=== PATIENT | female | born 1940 | race Caucasian/White ===

== ENCOUNTER 2017-07-19 15:33 | Emergency (ER) | payer MEDICARE ==
[~2017-07-19] VITALS: Ht 157.5 cm; Wt 90.0 kg
[~2017-07-19 15:33] MED LIST: ASPI81 PO; ATEN-102 PO; ENOX40P SQ; GLUCTAB OR; LISI-360 PO; NAPR-576 PO; OXYC-360 PO; PRIL10CA PO; SIMV10TA OR
[2017-07-19 15:35] VITALS: BP 172/81; PULSE 115; RESP 24; TEMP 97.7; O2SAT 94
--- NOTE | 2017-07-19 16:19 | PD ---
Physical Exam Date Seen by Provider: Jul 19, 2017 Time Seen by Provider: 16:15 Narrative 76-year-old female with history of bright flashes in both eyes yesterday afternoon. This lasted just a few seconds and the patient didn't think much of it. This morning the patient woke up with some headache which has continued through the day. Patient called the nurses hotline and she recommended she get evaluated here. Patient states it's a 1-2 out of 10 at most. Patient states this is where she has her typical headache across the front of the forehead. She denies any other symptoms. Patient states she does not normally get headaches and has no history of migraines. She feels is probably a stress headache. Patient did take some Tylenol but it did not seem to help. She states it is not getting worse but not getting better as well. She is allergic to codeine and penicillin. Vitals are reviewed. Patient is awaiting bed placement. Data Data Last Documented VS Vital Signs Date Time Temp Pulse Resp B/P (MAP) Pulse Ox O2 Delivery O2 Flow Rate FiO2 07/19/17 15:35 97.7 115 24 172/81 (111) 94 Room Air [facility] Medical Record Reviewed: Yes Supervised Visit with MENDEZ: Yes Condition: Stable Aleksandr Ray Jul 19, 2017 16:19
[2017-07-19 17:30] VITALS: BP 142/79; PULSE 112; RESP 20; O2SAT 97
[2017-07-19] MEDS ORDERED: SIMV10TA PO (17:43)
[2017-07-19] MEDS ORDERED: LISI30TA4 PO (17:43)
[2017-07-19] MEDS ORDERED: METF500T PO (17:43)
[2017-07-19] MEDS ORDERED: METO25TA3 PO (17:43)
[2017-07-19] MEDS ORDERED: ASPI81CH37 CHEW (17:43)
[2017-07-19] MEDS ORDERED: VITA1000 PO (17:43)
[2017-07-19] MEDS ORDERED: VERA1TAB17 PO (17:43)
[2017-07-19] MEDS ORDERED: SODIUM CHLOR 0.9% 1000 ML INJ 1,000 ML IV ONE (17:57)
[2017-07-19] MEDS ORDERED: SODIUM CHLORIDE 0.9% FLUSH 10 ML FLUSH IVF PRN (18:00)
--- NOTE | 2017-07-19 18:21 | PD ---
HPI Chief Complaint: Headache Time Seen by Provider: 17:27 Travel History International Travel<30 days: No Contact w/Intl Traveler<30days: No Traveled to known affect area: No History of Present Illness HPI Patient is a 76-year-old female who presents to emergency room complaints of a minor frontal headache today. Reports that yesterday, she was watching television and saw bright flashes of light in her eyes. She reports that symptoms lasted a few seconds and resolved on its own. Reports no pain with the bright flashing lights. Reports that she then began to have a slight headache today which is typical for her normal headaches, reports that her family insisted that she come to the emergency room for evaluation. Patient denies taking any anticoagulation, she denies any dizziness at this time. Reports mild frontal headache. Denies any vision changes, denies any nausea or vomiting, denies any fevers or chills, denies any chest pain or shortness of breath, no other complaints. PFSH Past Medical History Arthritis: Yes Autoimmune Disease: No Anxiety: Yes Cancer: No Cardiovascular Problems: Yes High Cholesterol: Yes Diabetes: Yes Patient Takes Glucophage: No Endocrine: Yes GERD: Yes Genitourinary: No Hypertension: Yes Implanted Vascular Access Dvce: Yes Musculoskeletal: Yes Neurologic: No Respiratory: No Influenza Vaccination: Yes Past Surgical History Joint Replacement: Yes (LEFT TOTAL HIP) Social History Alcohol Use: Yes (seldom) Tobacco Use: No Substance Use: No Allergies-Medications (Allergen,Severity, Reaction): Coded Allergies: codeine (Unverified Allergy, Severe, UNKNOWN, 07/19/17) penicillin G (Unverified Allergy, Severe, UNKNOWN, 07/19/17) Reported Meds & Prescriptions Reported Meds & Active Scripts Active Reported Vitamin D-1000 (Cholecalciferol) 1,000 Unit Tab 2,000 Units PO DAILY Verapamil ER 24 HR (Verapamil HCl) 240 Mg Tab 180 Mg PO DAILY Simvastatin 10 Mg Tab 10 Mg PO DAILY Metoprolol Tartrate 25 Mg Tab 12.5 Mg PO BID Metformin (Metformin HCl) 500 Mg Tab 500 Mg PO BIDPC With meals Lisinopril 30 Mg Tab 30 Mg PO DAILY Aspirin Low Dose (Aspirin) 81 Mg Chew 81 Mg CHEW DAILY Review of Systems General / Constitutional: No: Fever Eyes: Positive: Visual changes, No: Blurred Vision, Photophobia, Foreign Body Sensation, Pain, Tearing HENT: Positive: Headaches Cardiovascular: No: Chest Pain or Discomfort Respiratory: No: Shortness of Breath Gastrointestinal: No: Abdominal Pain Genitourinary: No: Dysuria Musculoskeletal: No: Pain Skin: No Rash Neurologic: Positive: Headache, No: Weakness Psychiatric: No: Depression Endocrine: No: Polydipsia Hematologic/Lymphatic: No: Easy Bruising Physical Exam Narrative GENERAL: NAD SKIN: Focused skin assessment warm/dry. HEAD: Atraumatic. Normocephalic. EYES: Pupils equal and round. No scleral icterus. No injection or drainage. ENT: No nasal bleeding or discharge. Mucous membranes pink and moist. NECK: Trachea midline. No JVD. CARDIOVASCULAR: Regular rate and rhythm. No murmur appreciated. RESPIRATORY: No accessory muscle use. Clear to auscultation. Breath sounds equal bilaterally. GASTROINTESTINAL: Abdomen soft, non-tender, nondistended. Hepatic and splenic margins not palpable. MUSCULOSKELETAL: No obvious deformities. No clubbing. No cyanosis. No edema. NEUROLOGICAL: Awake and alert. No obvious cranial nerve deficits. Motor grossly within normal limits. Normal speech. CN 2-12 grossly intact with no neurological deficits PSYCHIATRIC: Appropriate mood and affect; insight and judgment normal. Data Data Last Documented VS Vital Signs Date Time Temp Pulse Resp B/P (MAP) Pulse Ox O2 Delivery O2 Flow Rate FiO2 07/19/17 18:34 111 21 160/78 (105) 96 Room Air 07/19/17 15:35 97.7 Orders Orders Complete Blood Count With Diff (07/19/17 17:57) Basic Metabolic Panel (Bmp) (07/19/17 17:57) Prothrombin Time / Inr (Pt) (07/19/17 17:57) Act Partial Throm Time (Ptt) (07/19/17 17:57) Ct Brain W/O Iv Contrast(Rout) (07/19/17 17:57) Ecg Monitoring (07/19/17 17:57) Iv Access Insert/Monitor (07/19/17 17:57) Oximetry (07/19/17 17:57) Sodium Chloride 0.9% Flush (Ns Flush) (07/19/17 18:00) Sodium Chlor 0.9% 1000 Ml Inj (Ns 1000 M (07/19/17 17:57) Sodium Chlor 0.9% 1000 Ml Inj (Ns 1000 M (07/19/17 18:38) Ketorolac Inj (Toradol Inj) (07/19/17 18:45) MDM Medical Decision Making Medical Screen Exam Complete: Yes Emergency Medical Condition: Yes Medical Record Reviewed: Yes Interpretation(s) Vital Signs Date Time Temp Pulse Resp B/P (MAP) Pulse Ox O2 Delivery O2 Flow Rate FiO2 07/19/17 15:35 97.7 115 24 172/81 (111) 94 Room Air Differential Diagnosis Differential includes migraine headache, ich, electrolyte abnormality, glaucoma Narrative Course 76-year-old female who presents to emergency room with complaints of mild frontal headache, reports that yesterday episode where she saw some bright flashing lights in both eyes while watching tv. Patient reports complete resolution of symptoms at this time, reports mild frontal headache. Patient with no vision changes, no nausea or vomiting, no other complaints at this time. CBC, BMP and ct of head ordered. Will continue to monitor on conveyor monitor Diagnosis Primary Impression: Cephalgia Qualified Codes: R51 - Headache Patient Instructions: General Instructions Additional Instructions: Please follow up with your child daycare worker as scheduled Return to ER if symptoms return Please follow up with your primary care doctor Return to ER as needed Condition: Stable Emma Thomas DO Jul 19, 2017 18:21
[2017-07-19 18:33] VITALS: O2SAT 96
[2017-07-19 18:34] VITALS: BP 160/78; PULSE 111; RESP 21; O2SAT 96
--- NOTE | 2017-07-19 18:36 | RADRPT ---
EXAM DATE/TIME: 07/19/2017 18:16 [place] COMPARISON: No previous studies available for comparison. INDICATIONS : Cephalgia today. RADIATION DOSE: 56.35 CTDIvol (mGy) MEDICAL HISTORY : Hypertension. diabetes SURGICAL HISTORY : None. ENCOUNTER: Initial ACUITY: 1 day PAIN SCALE: 7/10 LOCATION: Bilateral head TECHNIQUE: Multiple contiguous axial images were obtained of the head. Using automated exposure control and adj ustment of the mA and/or kV according to patient size, radiation dose was kept as low as reasonably a chievable to obtain optimal diagnostic quality images. DICOM format image data is available electro nically for review and comparison. FINDINGS: CEREBRUM: The ventricles are normal for age. No evidence of midline shift, mass lesion, hemorrhage or acute in farction. No extra-axial fluid collections are seen. POSTERIOR FOSSA: The cerebellum and brainstem are intact. The 4th ventricle is midline. The cerebellopontine angle i s unremarkable. EXTRACRANIAL: The visualized portion of the orbits is intact. SKULL: The calvaria is intact. No evidence of skull fracture. CONCLUSION: Negative Noncontrast CT Charly Cast MD on July 19, 2017 at 18:34 Board Certified Radiologist. This report was verified electronically.
[2017-07-19] MEDS ORDERED: SODIUM CHLOR 0.9% 1000 ML INJ 1,000 ML IV SCH (18:38)
[2017-07-19] MEDS ORDERED: KETOROLAC TROMETHAMINE 30 MG/ML (IVP) VIAL IV PUSH ONE (18:45)
[2017-07-19 19:23] LABS: BASOPHIL % 0.5 % (0.0-2.0); EOSINOPHIL # 0.2 TH/MM3 (0-0.4); EOSINOPHIL % 1.7 % (0.0-4.0); HEMATOCRIT 42.8 % (35.0-46.0); HEMO FLAGS DIFF FINAL; LYMPH % 19.2 % (9.0-44.0); LYMPHOCYTE # 1.9 TH/MM3 (1.0-4.8); MEAN CELL VOLUME 95.2 FL (80.0-100.0); MEAN CORPUSCULAR HEMOGLOBIN 31.9 PG (27.0-34.0); MEAN CORPUSCULAR HGB CONC 33.5 % (32.0-36.0); NEUT % 72.6 % (16.0-70.0); PLATELET COUNT 256 TH/MM3 (150-450); RED BLOOD COUNT 4.49 MIL/MM3 (4.00-5.30); WHITE BLOOD COUNT 9.7 TH/MM3 (4.0-11.0)
[2017-07-19 19:43] LABS: APTT (PATIENT) 28.4 SEC (24.3-30.1); PROTHROMBIN TIME - PATIENT 11.3 SEC (9.8-11.6)
[2017-07-19 19:47] LABS: BICARBONATE 23.9 MEQ/L (21.0-32.0); POTASSIUM 4.5 MEQ/L (3.5-5.1)
--- NOTE | 2017-07-19 20:19 | PD ---
Physical Exam Date Seen by Provider: Jul 19, 2017 Time Seen by Provider: 20:17 Narrative The patient is a 76-year-old female who is initially evaluated by Dr. Thomas. Please refer to the initial history, physical, diagnostic evaluation, and treatment modality plan. The patient was signed out laboratory evaluation pending for her headache. Data Data Last Documented VS Vital Signs Date Time Temp Pulse Resp B/P (MAP) Pulse Ox O2 Delivery O2 Flow Rate FiO2 07/19/17 18:34 111 21 160/78 (105) 96 Room Air 07/19/17 15:35 97.7 Orders Orders Complete Blood Count With Diff (07/19/17 17:57) Basic Metabolic Panel (Bmp) (07/19/17 17:57) Prothrombin Time / Inr (Pt) (07/19/17 17:57) Act Partial Throm Time (Ptt) (07/19/17 17:57) Ct Brain W/O Iv Contrast(Rout) (07/19/17 17:57) Ecg Monitoring (07/19/17 17:57) Iv Access Insert/Monitor (07/19/17 17:57) Oximetry (07/19/17 17:57) Sodium Chloride 0.9% Flush (Ns Flush) (07/19/17 18:00) Sodium Chlor 0.9% 1000 Ml Inj (Ns 1000 M (07/19/17 17:57) Sodium Chlor 0.9% 1000 Ml Inj (Ns 1000 M (07/19/17 18:38) Ketorolac Inj (Toradol Inj) (07/19/17 18:45) Labs Laboratory Tests Test 07/19/17 18:30 White Blood Count 9.7 TH/MM3 Red Blood Count 4.49 MIL/MM3 Hemoglobin 14.3 GM/DL Hematocrit 42.8 % Mean Corpuscular Volume 95.2 FL Mean Corpuscular Hemoglobin 31.9 PG Mean Corpuscular Hemoglobin Concent 33.5 % Red Cell Distribution Width 14.0 % Platelet Count 256 TH/MM3 Mean Platelet Volume 7.7 FL Neutrophils (%) (Auto) 72.6 % Lymphocytes (%) (Auto) 19.2 % Monocytes (%) (Auto) 6.0 % Eosinophils (%) (Auto) 1.7 % Basophils (%) (Auto) 0.5 % Neutrophils # (Auto) 7.0 TH/MM3 Lymphocytes # (Auto) 1.9 TH/MM3 Monocytes # (Auto) 0.6 TH/MM3 Eosinophils # (Auto) 0.2 TH/MM3 Basophils # (Auto) 0.0 TH/MM3 CBC Comment DIFF FINAL Differential Comment Prothrombin Time 11.3 SEC Prothromb Time International Ratio 1.0 RATIO Activated Partial Thromboplast Time 28.4 SEC Blood Urea Nitrogen 18 MG/DL Creatinine 1.05 MG/DL Random Glucose 125 MG/DL Calcium Level 9.5 MG/DL Sodium Level 136 MEQ/L Potassium Level 4.5 MEQ/L Chloride Level 104 MEQ/L Carbon Dioxide Level 23.9 MEQ/L Anion Gap 8 MEQ/L Estimat Glomerular Filtration Rate 51 ML/MIN [facility] Medical Record Reviewed: Yes Supervised Visit with MENDEZ: No Interpretation(s) Laboratory Tests Test 07/19/17 18:30 White Blood Count 9.7 TH/MM3 Red Blood Count 4.49 MIL/MM3 Hemoglobin 14.3 GM/DL Hematocrit 42.8 % Mean Corpuscular Volume 95.2 FL Mean Corpuscular Hemoglobin 31.9 PG Mean Corpuscular Hemoglobin Concent 33.5 % Red Cell Distribution Width 14.0 % Platelet Count 256 TH/MM3 Mean Platelet Volume 7.7 FL Neutrophils (%) (Auto) 72.6 % Lymphocytes (%) (Auto) 19.2 % Monocytes (%) (Auto) 6.0 % Eosinophils (%) (Auto) 1.7 % Basophils (%) (Auto) 0.5 % Neutrophils # (Auto) 7.0 TH/MM3 Lymphocytes # (Auto) 1.9 TH/MM3 Monocytes # (Auto) 0.6 TH/MM3 Eosinophils # (Auto) 0.2 TH/MM3 Basophils # (Auto) 0.0 TH/MM3 CBC Comment DIFF FINAL Differential Comment Prothrombin Time 11.3 SEC Prothromb Time International Ratio 1.0 RATIO Activated Partial Thromboplast Time 28.4 SEC Blood Urea Nitrogen 18 MG/DL Creatinine 1.05 MG/DL Random Glucose 125 MG/DL Calcium Level 9.5 MG/DL Sodium Level 136 MEQ/L Potassium Level 4.5 MEQ/L Chloride Level 104 MEQ/L Carbon Dioxide Level 23.9 MEQ/L Anion Gap 8 MEQ/L Estimat Glomerular Filtration Rate 51 ML/MIN Last Impressions Head CT 07/19/17 7009 Signed Impressions: Service Date/Time: Saturday, July 19, 2017 18:16 - CONCLUSION: Negative Noncontrast CT Charly Cast MD Differential Diagnosis Differential diagnosis includes tension headache, sinusitis, cavernous sinus thrombosis, migraine, cluster headache, intracranial hemorrhage, subarachnoid hemorrhage. Narrative Course The patient was initially evaluated by the previous physician, Dr. Thomas. Please refer to the initial history, physical, diagnostic evaluation, and treatment modality plan. The patient was signed out at 7 PM laboratory evaluation pending. The CT of brain was negative. Laboratory evaluation reveals minimally elevated glucose of 125. The patient states she had some flashing lights out of both eyes yesterday, had no changes in her vision and had no loss of vision. That resolved and today she developed a frontal headache. The patient does have a history of similar frontal headaches. She denies any weakness of the arms or legs and denies any dysarthria. Patient appears to have a frontal headache, no evidence of acute CVA/TIA. Patient will be discharged home, will be provided a copy of her CT results and lab results at discharge to follow-up with her primary physician, Dr. Krishna with [facility]. Diagnosis Primary Impression: Cephalgia Qualified Codes: R51 - Headache Patient Instructions: General Instructions Additional Instruction: Please follow up with your cylinder press feeder as scheduled Return to ER if symptoms return Please follow up with your primary care doctor Return to ER as needed Med/Other Pt SpecificInfo: No Change to Meds Disposition: 01 DISCHARGE HOME Condition: Stable Ludin Wilde MD Jul 19, 2017 20:19
[2017-07-19 21:07] VITALS: BP 154/78
== END 2017-07-19 21:08 | disposition home or self-care (01) ==
LOC: NEPE 15:33
DX: R51 Headache (principal); E11.9 Type 2 diabetes mellitus without complications; I10 Essential (primary) hypertension; E78.00 Pure hypercholesterolemia, unspecified; Z79.84 Long term (current) use of oral hypoglycemic drugs; Z87.39 Personal history of other diseases of the musculoskeletal system and connective tissue; Z86.59 Personal history of other mental and behavioral disorders; Z86.79 Personal history of other diseases of the circulatory system; Z87.19 Personal history of other diseases of the digestive system
CPT/HCPCS: 70450; 80048; 85025; 85610; 85730; 96361; 96374; 99285; J1885; J7030